=== PATIENT | male | born 1995 | race Caucasian/White ===

== ENCOUNTER 2021-12-21 19:38 | Emergency (ER) | payer MEDICAID ==
[~2021-12-21] VITALS: Ht 172.7 cm; Wt 90.9 kg
[2021-12-21 20:49] VITALS: BP 122/69
[2021-12-21] MEDS ORDERED: MECLIZINE HCL 25 MG TABLET PO ONE (21:30)
[2021-12-21] MEDS ORDERED: MECL-134 PO (21:31)
== END 2021-12-21 21:58 | disposition home or self-care (01) ==
LOC: EMS 19:41
DX: F12.180 Cannabis abuse with cannabis-induced anxiety disorder (principal); R42 Dizziness and giddiness; F17.200 Nicotine dependence, unspecified, uncomplicated
CPT/HCPCS: 99282; Z7502; Z7610

== ENCOUNTER 2024-07-02 09:53 | Emergency (ER) | payer MEDICAID ==
[~2024-07-02] VITALS: Ht 170.2 cm; Wt 104.5 kg
[~2024-07-02 09:53] MED LIST: MECL-134 PO
[2024-07-02 10:15] VITALS: BP 158/92; PULSE 62; RESP 18; TEMP 98.4; O2SAT 98
[2024-07-02] MEDS: CEPHALEXIN MONOHYDRATE 500 MG CAPSULE PO ONE (10:59)
[2024-07-02] MEDS: SULFAMETHOX/TRIMETH DS 800-160 MG/TABLET PO ONE (10:59)
[2024-07-02] MEDS: ACETAMINOPHEN 500 MG TABLET PO ONE (10:59)
[2024-07-02] MEDS ORDERED: CEPH-558 PO (11:24)
[2024-07-02] MEDS ORDERED: SULF-261 PO (11:24)
[2024-07-02] MEDS ORDERED: ACET-3385 PO (11:24)
== END 2024-07-02 11:31 | disposition admitted as inpatient to this hospital (09) ==
LOC: EMS 09:58
DX: L03.115 Cellulitis of right lower limb (principal); F12.90 Cannabis use, unspecified, uncomplicated; W57.XXXA Bitten or stung by nonvenomous insect and other nonvenomous arthropods, initial encounter; Y93.89 Activity, other specified; Y92.89 Other specified places as the place of occurrence of the external cause; Y99.8 Other external cause status
CPT/HCPCS: 99284; 99285; Z7502; Z7610

== ENCOUNTER 2024-07-03 19:00 | Inpatient (IN) | payer MEDICAID ==
[~2024-07-03] VITALS: Ht 170.2 cm; Wt 104.5 kg
[~2024-07-03 19:00] MED LIST changes: +ACET-3385 PO; +CEPH-558 PO; -MECL-134 PO; +SULF-261 PO
[2024-07-03 19:16] VITALS: BP 135/79; PULSE 94; RESP 16; TEMP 98.8; O2SAT 100
[2024-07-03 22:27] LABS: BASOPHILS % (AUTO) 1.4 % (0.0-2.0); EOSINOPHILS % (AUTO) 0.8 % (1.0-6.0); HEMATOCRIT 43.9 % (41-53); HEMOGLOBIN 14.9 g/dL (13.5-17.5); LYMPHOCYTES # (AUTO) 3.4 K/uL (1.0-4.8); LYMPHOCYTES % (AUTO) 24.8 % (22.0-44.0); MEAN CORPUSCULAR HEMOGLOBIN 29.1 pg (26.0-34.0); MEAN CORPUSCULAR VOLUME 86 fL (80-100); MONOCYTES % (AUTO) 7.3 % (2.0-9.0); NEUTROPHILS # (AUTO) 9.1 K/uL (1.8-7.7); NEUTROPHILS % (AUTO) 65.7 % (40.0-70.0); PLATELET COUNT (AUTO) 304 K/uL (150-450); RED BLOOD CELL COUNT(AUTO) 5.13 MIL/uL (4.50-5.90); RED CELL DISTRIBUTION WIDTH 12.9 % (11.5-14.5); WHITE BLOOD COUNT (AUTO) 13.8 K/uL (4.5-11.0)
[2024-07-03 22:36] LABS: ANION GAP 11 mmol/L (8-16); CALCIUM, TOTAL 9.3 mg/dL (8.8-10.5); CARBON DIOXIDE 26 mmol/L (22-29); CHLORIDE 101 mmol/L (98-107); CREATININE 1.21 mg/dL (0.60-1.30); GLOMERULAR FILTR. RATE CALC > 60 mL/min (>60); GLUCOSE,RANDOM 109 mg/dL (70-110); POTASSIUM 3.7 mmol/L (3.5-5.1); SODIUM SERUM 138 mmol/L (136-145); UREA NITROGEN, BLOOD 15 mg/dL (7-18)
[2024-07-03 22:39] LABS: URIC ACID 6.9 mg/dL (2.6-7.2)
[2024-07-03 22:44] LABS: LACTIC ACID 1.4 mmol/L (0.4-2.0)
[2024-07-03] MEDS ORDERED: ACETAMINOPHEN 325 MG TABLET PO PRN (22:45)
[2024-07-03] MEDS ORDERED: ONDANSETRON HCL 4 MG/2 ML VIAL IVP PRN (22:45)
[2024-07-03] MEDS: SODIUM CHLORIDE 0.9% 1,000 ML IV ONE (22:55)
[2024-07-03] MEDS ORDERED: RINGERS SOLUTION,LACTATED 1,000 ML IV ONE (23:15)
[2024-07-03] MEDS: CLINDAMYCIN 600 MG/D5% WATER 50 ML IV ONE (23:22)
[2024-07-03] MEDS: VANCOMYCIN 1.5 GM/WATER(PEG) 300 ML IV ONE (23:23)
[2024-07-04] MEDS ORDERED: HEPARIN SODIUM,PORCINE 5,000 UNITS/ML VIAL SQ SCH
[2024-07-04] MEDS ORDERED: VANCOMYCIN 1.5 GM/WATER(PEG) 300 ML IV SCH (08:00)
== END 2024-07-04 00:38 | disposition left against medical advice (07) | DRG 383 ==
LOC: EMS 19:00 → EDH 22:40
PROVIDERS: ADMIT Internal Medicine; ATTEND Internal Medicine
DX: L03.031 Cellulitis of right toe (principal); R65.11 Systemic inflammatory response syndrome (SIRS) of non-infectious origin with acute organ dysfunction; N17.9 Acute kidney failure, unspecified; E66.9 Obesity, unspecified; Z68.36 Body mass index [BMI] 36.0-36.9, adult; Z53.29 Procedure and treatment not carried out because of patient's decision for other reasons
CPT/HCPCS: 80048; 83605; 84550; 85025; 87040; 99285; G0378; J3490; J7030

== ENCOUNTER 2025-02-18 12:00 | Emergency (ER) | payer MEDICAID, SELFPAY ==
[~2025-02-18] VITALS: Ht 170.2 cm; Wt 97.7 kg
[2025-02-18 12:08] VITALS: BP 127/72; PULSE 60; RESP 18; TEMP 98.6; O2SAT 99
[2025-02-18 12:32] LABS: PLATELET COUNT (AUTO) 275 K/uL (150-450); RED BLOOD CELL COUNT(AUTO) 5.03 MIL/uL (4.50-5.90); RED CELL DISTRIBUTION WIDTH 13.1 % (11.5-14.5); WHITE BLOOD COUNT (AUTO) 9.1 K/uL (4.5-11.0)
[2025-02-18 12:38] LABS: CALCIUM, TOTAL 9.3 mg/dL (8.8-10.5); CREATININE 0.96 mg/dL (0.60-1.30); GLOMERULAR FILTR. RATE CALC > 60 mL/min (>60); GLUCOSE,RANDOM 117 mg/dL (70-110); SODIUM SERUM 140 mmol/L (136-145); UREA NITROGEN, BLOOD 10 mg/dL (7-18)
[2025-02-18 12:51] LABS: APPEARANCE,URINE CLEAR (CLEAR); GLUCOSE, URINE (UA) NEGATIVE (NEGATIVE); LEUKOCYTE ESTERASE ,URINE NEGATIVE (NEGATIVE); NITRATE,URINE NEGATIVE (NEGATIVE); OCCULT BLOOD,URINE NEGATIVE (NEGATIVE); SPECIFIC GRAVITIY, URINE 1.021 (1.003-1.030)
[2025-02-18] MEDS ORDERED: IBUP-1554 PO (13:37)
[2025-02-18] MEDS ORDERED: ACET-66 PO (13:37)
== END 2025-02-18 13:55 | disposition home or self-care (01) ==
LOC: EMS 12:03
DX: S30.22XA Contusion of scrotum and testes, initial encounter (principal); F12.90 Cannabis use, unspecified, uncomplicated; W50.1XXA Accidental kick by another person, initial encounter; Y93.89 Activity, other specified; Y92.89 Other specified places as the place of occurrence of the external cause; Y99.8 Other external cause status
CPT/HCPCS: 76870; 80048; 81001; 85025; 99284